=== PATIENT | female | born 1940 | race Caucasian/White ===

== ENCOUNTER 2017-05-15 13:08 | Inpatient (IN) | payer MEDICARE ==
[~2017-05-15] VITALS: Ht 162.6 cm; Wt 63.1 kg
--- NOTE | 2017-05-15 15:00 | NUR ---
AAOX2, BB RA FROM AL: S/P FELL OFF WHEELCHAIR. MORE CONFUSED. SKIN IS WARM AND DRY. RESP IS EVEN AND UNLABORED WITH NAD NOTED. AWAITING MD FOR EVAL.
--- NOTE | 2017-05-15 16:53 | NUR ---
CASE MANAGEMENT CALLED FOR ASSISTANCE JUANIS D/C
[2017-05-15] MEDS ORDERED: TDAP [DIPH/PERTUSSIS/TET] 0.5 ML VIAL IM ONE ×2 (16:58→17:00)
[2017-05-15] MEDS ORDERED: LEVO100T9 PO (17:49)
[2017-05-15] MEDS ORDERED: SIMV40TA5 PO (17:49)
[2017-05-15] MEDS ORDERED: OLAN15TA3 PO (17:49)
[2017-05-15] MEDS ORDERED: METF500T4 PO (17:49)
[2017-05-15] MEDS ORDERED: AMLO2.5T PO (17:49)
[2017-05-15] MEDS ORDERED: RISP0.253 PO (17:49)
[2017-05-15] MEDS ORDERED: HYDROCODONE/APAP 5/325MG 1 EACH TABLET PO PRN (19:30)
[2017-05-15] MEDS ORDERED: ONDANSETRON HCL/PF 4 MG/2 ML VIAL IVP PRN (19:30)
[2017-05-15] MEDS ORDERED: Z GUARD REMEDY 2 OZ OINT TP PRN (19:30)
[2017-05-15] MEDS ORDERED: ACETAMINOPHEN 325 MG TABLET PO PRN (19:30)
[2017-05-15] MEDS ORDERED: MAGNESIUM HYDROXIDE 30 ML UDC PO PRN (19:30)
[2017-05-15] MEDS ORDERED: MAG HYDROX/AL HYDROX/SIMETH 30 ML UDC PO PRN (19:30)
[2017-05-15 19:42] LABS: BASOPHILS % (AUTO) 0.3 % (0.0-2.0); EOSINOPHILS # (AUTO) 0.1 /CMM (0.0-0.7); EOSINOPHILS % (AUTO) 1.8 % (0.0-6.0); HEMATOCRIT 34 % (33-45); HEMOGLOBIN 11.9 g/dL (11.5-14.8); LYMPHOCYTES # (AUTO) 1.4 /CMM (0.8-4.8); LYMPHOCYTES % (AUTO) 16.8 % (20.0-44.0); MEAN CORPUSCULAR HEMOGLOBIN 32 PG (26.0-33.0); MEAN CORPUSCULAR HGB CONC 35 g/dl (31.0-36.0); MEAN CORPUSCULAR VOLUME 92 fL (82-100); MONOCYTES # (AUTO) 0.8 /CMM (0.1-1.30); MONOCYTES % (AUTO) 9.8 % (2.0-12.0); NEUTROPHILS % (AUTO) 71.3 % (43.0-81.0); PLATELET COUNT (AUTO) 230 /CMM (150-450); RDW COEFFICIENT OF VARIATION 12.3 (11.5-15.0); RED BLOOD CELL COUNT(AUTO) 3.69 MIL/uL (4.0-5.2); WHITE BLOOD COUNT (AUTO) 8.3 K/uL (4.3-11.0)
[2017-05-15 19:59] LABS: ALANINE AMINOTRANSFERASE 33 U/L (12-78); ALBUMIN 3.6 g/dL (3.4-5.0); ALKALINE PHOSPHATASE 70 U/L (46-116); ASPARTATE AMINOTRANSFERASE 20 U/L (15-37); BILIRUBIN,TOTAL 0.2 mg/dL (0.2-1.0); CALCIUM, SERUM 9.4 mg/dL (8.5-10.1); CARBON DIOXIDE 24 mmol/L (21-32); CHLORIDE 110 mmol/L (98-107); GLUCOSE 136 mg/dL (74-106); MAGNESIUM 1.8 mg/dL (1.8-2.4); PHOSPHORUS 4.5 mg/dL (2.5-4.9); POTASSIUM 4.5 mmol/L (3.5-5.1); SODIUM SERUM 142 mmol/L (136-145); TOTAL PROTEIN, SERUM 7.2 g/dL (6.4-8.2); UREA NITROGEN, BLOOD 50 mg/dL (7-18)
--- NOTE | 2017-05-15 20:00 | NUR ---
REPORT RECIVED FROM REBECCA BONNER PT IN BED, NAD NOTED, WILL CONTINUE TO MONITOR.
--- NOTE | 2017-05-15 20:20 | NUR ---
REPORT GIVEN TO HA GHOSH FOR GIDEON.
[2017-05-15 20:30] VITALS: BP 158/62
--- NOTE | 2017-05-15 20:30 | NUR ---
MS RN ADMITTING NOTES: ADMITTED A 77 YO FEMALE PATIENT WHO WAS BROUGHT TO THE ER AFTER A MECHANICAL FALL FROM HER W/C AT THE [facility]. PATIENT WAS BROUGHT TO THE MS FLOOR VIA JEN, AOX1, ON ROOM AIR, BREATHING EVEN AND UNLABORED. BREATH SOUNDS CLEAR TO AUSCULTATION. O2 SAT AT 99%. PATIENT IS CONFUSED, WITH GARBLED SPEECH, BUT IS ABLE TO FOLLOW SIMPLE COMMANDS. NOTED L HAND AND LEFT ELBOW SKIN TEARS. ADMITTING CARE DONE. PROVIDED FOR COMFORT AND SAFETY. BED IN LOWEST AND LOCKED POSITION, SIDERAILS UP X3, BED ALARMS ON. WILL CONT TO MONITOR.
[2017-05-15 21:46] LABS: THYROID STIMULATING HORMONE 107.315 uIU/mL (0.358-3.74)
[2017-05-15] MEDS: OLANZAPINE 5 MG TABLET PO SCH (22:15)
[2017-05-15] MEDS: SIMVASTATIN 40 MG TABLET PO SCH (22:16)
[2017-05-15] MEDS: risperiDONE 0.25 MG TABLET PO SCH (22:16)
[2017-05-15] MEDS: IV 1/2NS 1000 ML 1,000 ML IV PRN (22:18)
--- NOTE | 2017-05-15 22:30 | NUR ---
RN NOTES: PIV INSERTED OVER RAC G 22, WITH GOOD BLOOD RETURN.
--- NOTE | 2017-05-16 02:29 | NUR ---
RN NOTES: PATIENT ACCIDENTALLY PULLED OUT IV. NEW IV LINE INSERTED OVER RFA G22, WITH GOOD BLOOD RETURN. RESTARTED IV FLUIDS.
[2017-05-16 06:49] LABS: BASOPHILS % (AUTO) 0.2 % (0.0-2.0); EOSINOPHILS # (AUTO) 0.3 /CMM (0.0-0.7); EOSINOPHILS % (AUTO) 3.7 % (0.0-6.0); HEMATOCRIT 31 % (33-45); LYMPHOCYTES # (AUTO) 1.6 /CMM (0.8-4.8); MEAN CORPUSCULAR HEMOGLOBIN 33 PG (26.0-33.0); MEAN CORPUSCULAR HGB CONC 35 g/dl (31.0-36.0); MEAN CORPUSCULAR VOLUME 92 fL (82-100); MONOCYTES # (AUTO) 0.7 /CMM (0.1-1.30); MONOCYTES % (AUTO) 8.1 % (2.0-12.0); NEUTROPHILS # (AUTO) 5.8 /CMM (1.8-8.9); PLATELET COUNT (AUTO) 226 /CMM (150-450); RDW COEFFICIENT OF VARIATION 13.1 (11.5-15.0); WHITE BLOOD COUNT (AUTO) 8.3 K/uL (4.3-11.0)
[2017-05-16 07:21] LABS: CALCIUM, SERUM 9.2 mg/dL (8.5-10.1); CARBON DIOXIDE 21 mmol/L (21-32); CHLORIDE 110 mmol/L (98-107); CREATININE 1.8 mg/dL (0.6-1.3); GLUCOSE 118 mg/dL (74-106); POTASSIUM 4.7 mmol/L (3.5-5.1); SODIUM SERUM 143 mmol/L (136-145); UREA NITROGEN, BLOOD 46 mg/dL (7-18)
[2017-05-16 07:30] LABS: CHOLESTEROL 165 mg/dL (<200); HDL CHOLESTEROL 51 mg/dL (40-60); LDL 101 mg/dL (0-99); TRIGLYCERIDES 68 mg/dL (30-150)
--- NOTE | 2017-05-16 07:30 | NUR ---
MS RN CLOSING NOTES: PATIENT IN BED, ASLEEP AT THIS TIME. APPEARS CALM AND IN NO DISTRESS, BREATHING EVEN AND UNLABORED. PIV OVER RFA G 22 INTACT AND PATENT. DUE MEDS GIVEN. PROVIDED FOR COMFORT AND SAFETY. BED IN LOWEST AND LOCKED POSITION, SIDERAILS UP X 3. BED ALARMS ON. ENDORSED TO AM RN FOR GIDEON.
[2017-05-16 08:00] VITALS: BP 109/63
--- NOTE | 2017-05-16 08:00 | NUR ---
MS RN RECEIVED ON BED, AWAKE,ALERT,ORIENTED X1, FORGETFUL, NOT IN ANY FORM OF DISTRESS, ESPIRATIONS EVEN AND UNLABORED, NO SOB NOTED ,WILL MONITOR PT.
[2017-05-16] MEDS ORDERED: METFORMIN 500 MG TABLET PO SCH ×2 (09:00→17:00)
--- NOTE | 2017-05-16 09:00 | NUR ---
MS BONNER BREAKFAST SERVED DUE MEDS GIVEN, TOLERATED WELL.
--- NOTE | 2017-05-16 09:10 | NUR ---
MS RN WAS SEEN BY DR. TAJ Tavares/ ORDERS MADE AND CARRIED OUT.
[2017-05-16] MEDS: LEVOTHYROXINE SODIUM 100 MCG TABLET PO SCH (09:56)
[2017-05-16] MEDS: AMLODIPINE BESYLATE 2.5 MG TABLET PO SCH (09:57)
[2017-05-16] MEDS ORDERED: DEXTROSE 50%-WATER 50 ML DISP.SYRIN IV PRN (12:00)
[2017-05-16] MEDS: BLOOD SUGAR DIAGNOSTIC 1 EACH STRIP IN SCH ×3 (12:25→21:22)
[2017-05-16] MEDS: INSULIN REGULAR, HUMAN 100 UNIT/ML 3 ML VIAL SQ PRN ×3 (12:25→21:26)
[2017-05-16 16:00] VITALS: BP 128/83
--- NOTE | 2017-05-16 16:00 | NUR ---
MS RN ASHLEE BRIONES OUT OF BED, PUT AT NURSES STATION ON A WHEELCHAIR, NO DISTRESS NOTED.
--- NOTE | 2017-05-16 18:07 | NUR ---
MS RN ON WHEELCHAIR, NO DISTRESS NOTED, WILL ENDORSE TO POUNCING LATHE OPERATOR FOR CONTINUITY OF CARE.
--- NOTE | 2017-05-16 19:27 | NUR ---
RN NOTES A/O X 1, PT IN STABLE CONDITION, NO S/S OF DISTRESS. SAFETY MEASURES ARE IN PLACE, CALL LIGHT IS IN REACH. WILL CONTINUE TO MONITOR.
[2017-05-16 20:00] VITALS: BP 116/69
[2017-05-16] MEDS: OLANZAPINE 5 MG TABLET PO SCH (21:23)
[2017-05-16] MEDS: risperiDONE 0.25 MG TABLET PO SCH (21:24)
[2017-05-16] MEDS: SIMVASTATIN 40 MG TABLET PO SCH (21:24)
[2017-05-17] MEDS: IV 1/2NS 1000 ML 1,000 ML IV PRN (00:06)
[2017-05-17] MEDS: BLOOD SUGAR DIAGNOSTIC 1 EACH STRIP IN SCH ×4 (05:29→22:30)
[2017-05-17] MEDS: INSULIN REGULAR, HUMAN 100 UNIT/ML 3 ML VIAL SQ PRN ×3 (05:30→22:34)
--- NOTE | 2017-05-17 06:17 | NUR ---
MS RN CLOSING NOTES ASLEEP IN BED, TOLERATING ROOM AIR 98% RESPIRATIONS EVEN AND UNLABORED. NOT IN S/S DISTRESS. STABLE CONDITION. ALL NURSING CARE RENDERED. NEEDS ATTENDED AND ANTICIPATED, KEPT CLEAN AND DRY AND COMFORTABLE, FREQUENT VISUAL CHECK DONE FOR SAFETY EVERY 2 HOURS. ASSISTED REPOSITION Q2H. ON LOW BED AT ALL TIMES TO ENSURE SAFETY. SAFE HAZARD FREE ENVIRONMENT PROVIDED. CALL LIGHT WITHIN EASY TO REACH. WILL ENDORSE NEXT SHIFT CONTINUITY OF CARE.
[2017-05-17 07:34] LABS: BASOPHILS % (AUTO) 0.5 % (0.0-2.0); EOSINOPHILS # (AUTO) 0.2 /CMM (0.0-0.7); EOSINOPHILS % (AUTO) 2.3 % (0.0-6.0); HEMATOCRIT 32 % (33-45); HEMOGLOBIN 11.2 g/dL (11.5-14.8); LYMPHOCYTES # (AUTO) 1.9 /CMM (0.8-4.8); LYMPHOCYTES % (AUTO) 24.2 % (20.0-44.0); MEAN CORPUSCULAR HEMOGLOBIN 33 PG (26.0-33.0); MEAN CORPUSCULAR HGB CONC 35 g/dl (31.0-36.0); MEAN CORPUSCULAR VOLUME 93 fL (82-100); MONOCYTES # (AUTO) 0.6 /CMM (0.1-1.30); MONOCYTES % (AUTO) 8.1 % (2.0-12.0); NEUTROPHILS % (AUTO) 64.9 % (43.0-81.0); PLATELET COUNT (AUTO) 240 /CMM (150-450); RDW COEFFICIENT OF VARIATION 12.9 (11.5-15.0); WHITE BLOOD COUNT (AUTO) 7.7 K/uL (4.3-11.0)
--- NOTE | 2017-05-17 07:43 | NUR ---
MS/RN OPENING NOTE PATIENT RECEIVED IN BED IN STABLE CONDITION. A/O X 1 WITH EPISODES OF CONFUSION AND FORGETFULNESS. NO SIGNS OF ACUTE DISTRESS. NO COMPLAIN OF PAIN OR DISCOMFORT. ALL NEEDS ATTENDED TO. CALL LIGHT WITHIN REACH. WILL CONTINUE TO MONITOR TO ENSURE SAFETY.
[2017-05-17 07:55] LABS: CALCIUM, SERUM 8.9 mg/dL (8.5-10.1); CARBON DIOXIDE 21 mmol/L (21-32); CHLORIDE 107 mmol/L (98-107); CREATININE 1.9 mg/dL (0.6-1.3); GLUCOSE 122 mg/dL (74-106); POTASSIUM 4.5 mmol/L (3.5-5.1); SODIUM SERUM 140 mmol/L (136-145); UREA NITROGEN, BLOOD 49 mg/dL (7-18)
[2017-05-17 08:00] VITALS: BP 149/79
[2017-05-17] MEDS: LEVOTHYROXINE SODIUM 100 MCG TABLET PO SCH (08:49)
[2017-05-17] MEDS: AMLODIPINE BESYLATE 2.5 MG TABLET PO SCH (08:49)
[2017-05-17 16:00] VITALS: BP 140/91
--- NOTE | 2017-05-17 18:57 | NUR ---
MS/RN CLOSING NOTE PATIENT UP IN WC BY STATION SECONDARY TRYING TO GET OUT OF BED UNATTENDED, FALL RISK. A/O X 1. WITH EPISODES OF CONFUSION AND FORGETFULNESS. NO SIGNS OF ACUTE DISTRESS. NO COMPLAIN OF PAIN OR DISCOMFORT. ALL NEEDS ATTENDED TO. CALL LIGHT WITHIN REACH. WILL ENDORSE TO NEXT SHIFT FOR CONTINUITY OF CARE.
--- NOTE | 2017-05-17 19:30 | NUR ---
RN OPENING NOTES PATIENT IS SITTING ON THE CHAIR BY NURSING STATION. ALERT AND ORIENTED X1. PATIENT IS TRYING TO GET OUT OF BED UNATTENDED WITH EPISODES OF CONFUSION AND FORGETFULNESS. NO SOB NOTED. RESPIRATIONS EVEN AND UNLABORED. PATIENT PULLED OUT AN IV AND REFUSED TO HAVE A NEW ONE. BED IN LOW AND LOCKED POSITION, SIDE RAILSX2. CALL LIGHT WITHIN EASY REACH. WILL CONTINUE TO MONITOR AND ASSES DURING THE SHIFT.
[2017-05-17 20:00] VITALS: BP 143/84
[2017-05-17 21:47] VITALS: BP 143/54
[2017-05-17] MEDS: risperiDONE 0.25 MG TABLET PO SCH (22:22)
[2017-05-17] MEDS: SIMVASTATIN 40 MG TABLET PO SCH (22:22)
[2017-05-17] MEDS: OLANZAPINE 5 MG TABLET PO SCH (22:23)
[2017-05-17] MEDS ORDERED: LORAZEPAM 0.5 MG TABLET PO PRN (22:30)
--- NOTE | 2017-05-17 22:30 | NUR ---
RN NOTES PATIENT IS CONFUSED AND AGITATED. OBTAINED ORDER FROM DR ALVARADO FOR BILATERAL SOFT RESTRAINTS. CONTINUE TO MONITOR.
[2017-05-18 06:41] LABS: BASOPHILS % (AUTO) 0.4 % (0.0-2.0); EOSINOPHILS # (AUTO) 0.1 /CMM (0.0-0.7); EOSINOPHILS % (AUTO) 1.7 % (0.0-6.0); HEMATOCRIT 33 % (33-45); HEMOGLOBIN 11.3 g/dL (11.5-14.8); MEAN CORPUSCULAR HEMOGLOBIN 32 PG (26.0-33.0); MEAN CORPUSCULAR HGB CONC 34 g/dl (31.0-36.0); MEAN CORPUSCULAR VOLUME 92 fL (82-100); MONOCYTES # (AUTO) 0.9 /CMM (0.1-1.30); NEUTROPHILS # (AUTO) 5.5 /CMM (1.8-8.9); NEUTROPHILS % (AUTO) 64.9 % (43.0-81.0); PLATELET COUNT (AUTO) 276 /CMM (150-450); RDW COEFFICIENT OF VARIATION 13.1 (11.5-15.0); RED BLOOD CELL COUNT(AUTO) 3.57 MIL/uL (4.0-5.2); WHITE BLOOD COUNT (AUTO) 8.5 K/uL (4.3-11.0)
[2017-05-18 07:00] LABS: CALCIUM, SERUM 9.3 mg/dL (8.5-10.1); CARBON DIOXIDE 22 mmol/L (21-32); CHLORIDE 108 mmol/L (98-107); CREATININE 1.9 mg/dL (0.6-1.3); GLUCOSE 131 mg/dL (74-106); SODIUM SERUM 142 mmol/L (136-145); UREA NITROGEN, BLOOD 50 mg/dL (7-18)
[2017-05-18] MEDS: BLOOD SUGAR DIAGNOSTIC 1 EACH STRIP IN SCH ×2 (07:07→11:43)
--- NOTE | 2017-05-18 07:10 | NUR ---
RN NOTES BS 128. NO INSULIN ADMINISTERED. CONTINUE TO MONITOR.
--- NOTE | 2017-05-18 07:30 | NUR ---
RN CLOSING NOTES PATIENT IS SLEEPING IN BED, EASY TO AROUSE. ALERT AND ORIENTED X1. NO SOB NOTED. RESPIRATIONS EVEN AND UNLABORED. BILATERAL SOFT RESTRAINTS. MONITOR EVERY 15 MIN FOR CIRCULATION. IV ACCESS AT R FA PATENT AND INTACT. NO REDNESS OR INFILTRATION NOTED. ALL NEEDS ARE MET AND MEDICATIONS GIVEN PER MD ORDER. BED IN LOW AND LOCKED POSITION, SIDE RAILSX2. CALL LIGHT WITHIN EASY REACH. WILL ENDORSE TO RN DAY SHIFT FOR GIDEON.
--- NOTE | 2017-05-18 07:56 | NUR ---
RN OPENING NOTES RECEIVED PATIENT RESTING COMFORTABLY IN BED. PATEINT AOX1. RESTRAINTS IN PLACE FOR SAFETY. PATIENT REPORTED TO GET UP OUT OF BED REPEATEDLY AND IS AT A SIGNIFICANT RISK FOR FALLING. NO ACUTE DISTRESS NOTED. RESPIRATIONS EVEN AND UNLABORED. IV ACCESS PATENT AND INTACT IN THE RFA WITH 1/2NS RUNNING AT 60ML/HR. BED LOCKED IN THE LOWEST POSITION WITH SIDE RAIL UP X2. CALL LIGHT WITHIN REACH. WILL CONTINUE TO MONITOR, ASSESS AND EDUCATE PATIENT THROUGHOUT SHIFT.
[2017-05-18 08:00] VITALS: BP 160/88
[2017-05-18] MEDS: LEVOTHYROXINE SODIUM 100 MCG TABLET PO SCH (08:57)
[2017-05-18] MEDS: AMLODIPINE BESYLATE 2.5 MG TABLET PO SCH (08:57)
[2017-05-18] MEDS: INSULIN REGULAR, HUMAN 100 UNIT/ML 3 ML VIAL SQ PRN (11:43)
[2017-05-18 16:00] VITALS: BP 157/88
--- NOTE | 2017-05-18 17:47 | NUR ---
TRN CLOSING NOTES PATIENT DISCHARGED IN STABLE CONDITION. PATIENT DISORIENTED. RESPIRATIONS EVEN AND UNLABORED. NO ACUTE DISTRESS. PATIENT UNABLE TO SIGN DISCHARGE INSTRUCTIONS DUE TO MENTAL STATUS. PATIENT TO GO TO [facility] [place]. NO NEW MEDICATIONS. CONTINUE MEDICATIONS DIRECTED. IN THE EVENT OF AN EMERGENCY PATIENT TO RETURN TO ER. FOLLOW UP PCP 1-2 WEEKS.
== END 2017-05-18 17:38 | disposition home or self-care (01) | DRG 682 ==
LOC: ER 13:10 → TELE 20:19 → MED 05-16 01:17
PROVIDERS: ADMIT Nurse Practitioner Acute Care; ATTEND Nurse Practitioner Acute Care
DX: I12.9 Hypertensive chronic kidney disease with stage 1 through stage 4 chronic kidney disease, or unspecified chronic kidney disease (principal); G93.40 Encephalopathy, unspecified; N17.0 Acute kidney failure with tubular necrosis; W05.0XXA Fall from non-moving wheelchair, initial encounter; E11.22 Type 2 diabetes mellitus with diabetic chronic kidney disease; E86.9 Volume depletion, unspecified; E66.01 Morbid (severe) obesity due to excess calories; F03.90 Unspecified dementia, unspecified severity, without behavioral disturbance, psychotic disturbance, mood disturbance, and anxiety; E03.9 Hypothyroidism, unspecified; N18.9 Chronic kidney disease, unspecified; Y92.049 Unspecified place in boarding-house as the place of occurrence of the external cause; Z79.84 Long term (current) use of oral hypoglycemic drugs; Z79.899 Other long term (current) drug therapy; E78.5 Hyperlipidemia, unspecified
CPT/HCPCS: 36415; 70450-TC; 80048-TC; 80053-TC; 80061-TC; 82962-TC; 83735-TC; 84100-TC; 84443-TC; 85025-TC; 87081-TC; 90715; 97116-TC; 97530-TC; A4606; A6402; A6403; J1815; J3490; J7030; Z7610